=== PATIENT | male | born 1965 | race Two or more races ===

== ENCOUNTER 2021-05-24 10:02 | Emergency (ER) | payer OTHER ==
[~2021-05-24] VITALS: Ht 188 cm; Wt 122.5 kg
[2021-05-24 10:04] VITALS: BP 165/97
--- NOTE | 2021-05-24 10:25 | NUR ---
55 Y/O MALE C/O PENILE PAIN X5DAYS. PER PATIENT "HIS PENIS FEELS HOT AT THIS TIME." PT IS UNABLE TO PRODUCE ANY URINE DUE TO MEDICAL HX. PER PATIENT HE WAS GIVEN ABX BY HIS PCP AND STATED "THEY HAVE NOT BEEN HELPING." PT DENIES ANY PAIN IN HIS LOWER BACK/ABDOMEN/CHEST. DENIES FEVER/CHILLS. DENIES N/V/D. PMH: HTN, PROSTATE CA, PROSTATECTOMY 03/24/21, ESRD RIGHT FEMORAL MWF [facility]
[2021-05-24] MEDS ORDERED: ACETAMINOPHEN EXTRA STRENGTH 500 MG TAB PO ONE (10:50)
--- NOTE | 2021-05-24 11:39 | NUR ---
DR. SEGURA BEDSIDE EVALUATING PT
[2021-05-24] MEDS ORDERED: ACET-2619 PO (12:03)
[2021-05-24 12:14] VITALS: BP 183/94
== END 2021-05-24 12:14 | disposition home or self-care (01) ==
LOC: MED 10:02
DX: R39.15 Urgency of urination (principal); G89.18 Other acute postprocedural pain; N48.89 Other specified disorders of penis; F45.8 Other somatoform disorders; I12.0 Hypertensive chronic kidney disease with stage 5 chronic kidney disease or end stage renal disease; N18.6 End stage renal disease; Z99.2 Dependence on renal dialysis; Z79.899 Other long term (current) drug therapy; Z85.46 Personal history of malignant neoplasm of prostate; Z98.890 Other specified postprocedural states
CPT/HCPCS: 99282